=== PATIENT | female | born 1985 | race Caucasian/White ===

== ENCOUNTER 2016-06-11 10:04 | Emergency (ER) | payer SELFPAY ==
[~2016-06-11] VITALS: Ht 154.9 cm; Wt 58.6 kg
[~2016-06-11 10:04] MED LIST: BACT800T5 PO; CEPH500C3 PO; PERC5TAB12 PO
[2016-06-11 10:07] VITALS: BP 111/79; PULSE 95; RESP 18; TEMP 98.2; O2SAT 98
--- NOTE | 2016-06-11 11:00 | PD ---
HPI Chief Complaint: Skin Problem Time Seen by Provider: 10:42 Travel History International Travel<30 days: No Contact w/Intl Traveler<30days: No Traveled to known affect area: No History of Present Illness HPI The patient was seen and examined in the presence of the nurse. This patient complains of an infected area in her right groin. Duration 3 days. Severity is moderate. No fever or injury or drainage. PFSH Past Medical History Diminished Hearing: No Genitourinary: Yes (Hx UTI's) ?: Not LMP: 2 WEEKS AGO : 2 Para: 1 Miscarriage: 0 : 1 Past Surgical History Section: Yes (2008) Social History Alcohol Use: No Tobacco Use: Yes () Substance Use: Yes (Divya) Allergies-Medications (Allergen,Severity, Reaction): Coded Allergies: See Uncoded Allergy/Adv Reaction (Verified Adverse Reaction, Severe, ) NARCOTICS BECAUSE PATIENT IS A RECOVERING ADDICT AND STATES SHE DOES NOT WANT ANY Reported Meds & Prescriptions Reported Meds & Active Scripts Active Percocet 5-325 mg (Oxycodone/Acetaminophen) 1 Tab 1 Tab PO Q6H PRN Keflex (Cephalexin Monohydrate) 500 Mg Cap 500 Mg PO Q8 10 Days Bactrim DS (Sulfamethoxazole-Trimethoprim DS) 1 Tab Tab 1 Tab PO BID 10 Days Review of Systems General / Constitutional: No: Fever HENT: No: Headaches Cardiovascular: No: Chest Pain or Discomfort Physical Exam Narrative GASTROINTESTINAL: Abdomen soft, non-tender, nondistended. Positive bowel sounds. No hepato-splenomegaly, or palpable masses. No guarding. Psych: Normal mood and affect. Normal insight and judgment. Groin: Patient has an abscess in the right inguinal region. It's erythematous and tender and elevated. Data Data Last Documented VS Vital Signs Date Time Temp Pulse Resp B/P Pulse Ox O2 Delivery O2 Flow Rate FiO2 06/11/16 10:07 98.2 95 18 111/79 98 MDM Medical Decision Making Medical Screen Exam Complete: Yes Emergency Medical Condition: Yes Medical Record Reviewed: Yes Differential Diagnosis Boil, abscess, epidermoid cyst Narrative Course I have reviewed the patient's electronic medical record. Patient gives verbal consent for incision and drainage. Procedure note: I anesthetized the area with ethyl chloride spray. Used an 11 blade scalpel to open up the infected area. I drained out a large quantity of thick yellow pus. Wound culture was sent. No complications. I broke down the loculations. Prescribed her antibiotics and something for pain Recommending warm compresses and follow-up with her doctor Diagnosis Primary Impression: Skin abscess Qualified Code: L02.91 - Cutaneous abscess, unspecified site Additional Instructions: The patient was advised to follow up with their physician and return if they worsen. The patient was warned about potential sedation for the medications they will receive on prescription. Med/Other Pt SpecificInfo: Prescription(s) given Disposition: DISCHARGE HOME Condition: Stable Eyad Harman MD Jun 11, 2016 11:00
[2016-06-11] MEDS ORDERED: TRAM50TA PO (11:01)
[2016-06-11] MEDS ORDERED: BACT800T5 PO (11:02)
== END 2016-06-11 11:26 | disposition home or self-care (01) ==
LOC: PHED 10:04
DX: L02.214 Cutaneous abscess of groin (principal); B95.61 Methicillin susceptible Staphylococcus aureus infection as the cause of diseases classified elsewhere
CPT/HCPCS: 10060; 86403; 87070; 87186